=== PATIENT | male | born 2000 ===

== ENCOUNTER 2025-01-24 15:30 | Emergency (ER) | payer SELFPAY ==
[~2025-01-24] VITALS: Ht 160 cm; Wt 68.0 kg
[2025-01-24 15:37] VITALS: O2SAT 100
[2025-01-24 18:11] VITALS: TEMP 37.1
[2025-01-24 18:31] VITALS: BP 126/79; PULSE 74; RESP 14; O2SAT 99
== END 2025-01-24 18:32 | disposition home or self-care (01) ==
LOC: ER 15:30
DX: M25.521 Pain in right elbow (principal); M25.531 Pain in right wrist
CPT/HCPCS: 99284; 29105; 73552; 73070; 73110; A6449; A4565